=== PATIENT | female | born 1990 | race Hispanic/Latino ===

== ENCOUNTER 2017-05-05 19:38 | Emergency (ER) | payer MEDICAID ==
[2017-05-05] MEDS ORDERED: ACETAMINOPHEN 325 MG TAB ONE (20:11)
[2017-05-05 20:28] LABS: APPEARANCE,URINE Clear (CLEAR); BILIRUBIN,URINE Negative (NEGATIVE); COLOR,URINE Yellow (YELLOW); GLUCOSE, URINE (UA) Negative (NEGATIVE); KETONES,URINE Negative (NEGATIVE); LEUKOCYTE ESTERASE ,URINE Small (NEGATIVE); NITRATE,URINE Negative (NEGATIVE); OCCULT BLOOD,URINE Negative (NEGATIVE); PH,URINE 6.5 (5.0-8.0); PROTEIN,URINE Negative (NEGATIVE); UROBILINOGEN,URINE 0.2 mg/dL (0.2-1.0)
[2017-05-05 21:02] LABS: BACTERIA,URINE Rare /HPF (None Seen); RBC,URINE 0-1 /HPF (0-1); SQUAMOUS EPITHELIAL CELL,UR Rare /LPF (0-2); TRANSITIONAL EPI CELLS,URINE Rare /LPF (None Seen)
== END 2017-05-05 22:42 | disposition home or self-care (01) ==
LOC: EDH 19:38
DX: R51 Headache (principal)
CPT/HCPCS: 81001

== ENCOUNTER 2017-08-10 21:55 | Emergency (ER) | payer MEDICAID | END 2017-08-10 23:06 | disposition home or self-care (01) | LOC: EDH 21:55 | DX: L73.9 Follicular disorder, unspecified (principal); Z79.899 Other long term (current) drug therapy ==